=== PATIENT | female | born 1970 | race African-American/Black ===

== ENCOUNTER 2021-04-03 15:20 | Emergency (ER) | payer OTHER ==
[~2021-04-03] VITALS: Ht 165.1 cm; Wt 49.9 kg
[~2021-04-03 15:20] MED LIST: CANNABIS; HYDR-5191 PO
[2021-04-03 16:07] VITALS: BP 183/118
--- NOTE | 2021-04-03 19:03 | NUR ---
PT DANNY SOLIS MADE AWARE.
== END 2021-04-03 18:55 | disposition left against medical advice (07) ==
LOC: MED 15:20
DX: R51.9 Headache, unspecified (principal); Z53.21 Procedure and treatment not carried out due to patient leaving prior to being seen by health care provider